=== PATIENT | female | born 1965 | race Caucasian/White ===

== ENCOUNTER → 2016-08-14 | Outpatient (CLI) | payer BC ==
--- NOTE | 2016-08-14 16:20 | XA ---
Exam Date: 08/14/16 Patient's Age: 50 HEIGHT: 65.0 in. WEIGHT: 176.0 lbs. INDICATIONS: Currently menopausal FRACTURES: TREATMENTS: Vitamin C, vitamin D ASSESSMENT: The BMD measured at Femur Neck Mean is 0.765 g/cm2 with a T-score of -2.0. This patient is considered osteopenic according to World Health Organization ( WHO) criteria. Bone density between 10% and 25% below young normal. Fracture risk is moderate. Treatment is advised. The BMD measured at Femur Troch Mean is 0.636 g/cm2 with a T-score of -1.9 is considered moderately low. Fracture risk is moderate. Treatment is advised if there are other risk factors. RESULTS: Site Region Age Classification T-Score BMD AP Spine L1-L4 48.9 Osteopenia -1.8 0.978 g/cm2 Dual Femur Neck Mean 48.9 Osteopenia -2.0 0.765 g/cm2 Dual Femur Troch Mean 48.9 N/A -1.9 0.636 g/cm2 Dual Femur Total Mean 48.9 Osteopenia -1.7 0.797 g/cm2 World Health Organization - Criteria for post-menopausal, women: Normal: T-Score at or above -1 SD Osteopenia: T-Score between -1 and -2.5 SD Osteoporosis: T-Score at or below -2.5 SD RECOMMENDATION: Pharmacologic treatment recommendations & Initiate pharmacologic treatment: - In those with hip or vertebral (clinical or asymptomatic) fractures - In those with T -scores <-2.5 at the femoral neck, total hip, or lumbar spine by DXA - In postmenopausal women and men age 50 and older with low bone mass (T-score between -1.0 and -2.5, osteopenia) at the femoral neck, total hip, or lumbar spine by DXA and a 10-year hip fracture probability >3 % or a 10-year major osteoporosis-related fracture probability >20% based on the [place]-adapted WHO absolute fracture risk model (Fracture Risk Algorithm (FRAX); www. NOF.org and www.shef.ac.uk/FRAX) FOLLOW UP: People with diagnosed cases of osteoporosis or at high risk for fracture should have regular bone mineral density tests. For patients eligible for Medicare, routine testing is allowed once every 2 years. The testing frequency can be increased to 1 year for patients who have rapidly progressing disease, those who are reviewing or discontinuing medial therapy to restore bone mass, or have additional risk factors. People with diagnosed cases of osteoporosis or osteopenia should be regularly tested for bone mineral density. For patient eligible for Medicare, routine testing is allowed once every 2 years. The testing frequency can be increased to 1 year for patients who have rapidly progressing disease, or for those who are receiving medial therapy to restore bone mass. [facility] -- LUCIANA Coello [phone] - FAX: [phone] ANEL
--- NOTE | 2016-08-14 16:23 | MY ---
EXAMINATION: Bilateral digital mammography utilizing CAD. HISTORY: Screening exam. No comparisons made available. FINDINGS: Bilateral fibroglandular densities. There is possibly a two-view asymmetry noted within the anterolateral left breast. Otherwise, no suspicious calcifications, masses or architectural dis tortions. No pathologic appearing lymph nodes, no abnormal skin thickening or nipple inversion. O ther CAD highlighted regions appear normal at this time. IMPRESSION: BI-RADS category 0 - Incomplete study. Left breast diagnostic is needed for further ev aluation. THE FALSE-NEGATIVE RATE OF MAMMOGRAM IS APPROXIMATELY 10%. MANAGEMENT OF A PALPABLE ABNORMALITY MUST BE BASED UPON CLINICAL GROUNDS. SENSITIVITY FOR DETECTION OF ABNORMALITIES IN DENSE BREASTS IS LOW. NOTE: A letter will be sent to the patient regarding findings. [facility] -- LUCIANA Coello [phone] - FAX [phone]
== END ==
LOC: MW.MAM 14:35
PROVIDERS: ATTEND Nurse Practitioner Family
DX: Z12.31 Encounter for screening mammogram for malignant neoplasm of breast (principal); M81.0 Age-related osteoporosis without current pathological fracture
CPT/HCPCS: 77080; G0202

== ENCOUNTER 2019-01-13 09:42 | Day surgery (SDC) | payer BC ==
[~2019-01-13 09:42] MED LIST: Lactated Ringers 1,000 ML IV SCH; Lidocaine 2% 5 ML SDV ONE; Propofol 200 MG/20 ML SDV ONE; Sodium Chloride 0.9% 10 ML SDV IV PRN; Sodium Chloride 0.9% 10 ML Syringe FLUSH PRN; Sodium Chloride 0.9% 2.5 ML Syringe FLUSH PRN; fentaNYL 100 MCG/2 ML SDV ONE
--- NOTE | 2019-01-13 10:31 | PCM.PREANE ---
Preanesthetic Assessment - Anesthesia/Transfusion/Family Hx Anesthesia History: Prior Anesthesia Without Reaction Family History of Anesthesia Reaction: No Transfusion History: No Prior Transfusion(s) - Review of Systems General: No Symptoms Pulmonary: No Symptoms Cardiovascular: No Symptoms Gastrointestinal: No Symptoms, Nausea Other: Reports: None - Physical Assessment NPO Status Date: 01/13/19 NPO Status Time: 05:00 Vital Signs: Last Vital Signs Temp 97.7 F 01/13/19 10:00 Pulse 76 01/13/19 10:00 Resp 16 01/13/19 10:00 BP 144/89 H 01/13/19 10:00 Pulse Ox 100 01/13/19 10:00 Height: 5 ft 4 in Weight: 80.739 kg ASA Class: 2 Mental Status: Alert & Oriented x3 Airway Class: Mallampati = 2 Dentition: Reports: Normal Dentition ROM/Head Extension: Full Lungs: Clear to Auscultation, Normal Respiratory Effort Cardiovascular: Regular Rate, Regular Rhythm - Allergies Allergies/Adverse Reactions: Allergies Allergy/AdvReac Type Severity Reaction Status Date / Time No Known Allergies Allergy Verified 01/07/19 12:16 - Blood Blood Available: Yes - Acknowledgements Anesthesia Type Planned: General Anesthesia Pt an Appropriate Candidate for the Planned Anesthesia: Yes Alternatives and Risks of Anesthesia Discussed w Pt/Guardian: Yes Pt/Guardian Understands and Agrees with Anesthesia Plan: Yes Additional Comments: PMH: gerd PLAN: tiva PreAnesthesia Questionnaire HEENT History: Reports: Other (See Below) Other HEENT History: wears glasses, hx of Toxoplasmosis- in remission Cardiovascular History: Reports: Hypertension Other Cardiovascular History: hx of hypertension in the past- started exercise and it has stayed under control Gastrointestinal History: Reports: GERD Musculoskeletal History: Reports: Fracture Other Musculoskeletal History: hx of fx ribs, right arm, left arm, right foot Neurological History: Reports: Other (See Below) Other Neuro History: hx of restless leg syndrome Endocrine/Metabolic History: Reports: Obesity/BMI 30+ - Past Surgical History HEENT Surgical History: Reports: Other (See Below) Other HEENT Surgeries/Procedures: hx of Eye muscle surgery Female Surgical History: Reports: Tubal Ligation - SUBSTANCE USE Smoking Status *Q: Former Smoker Tobacco Use Within Last Twelve Months: No Recreational Drug Use History: No - HOME MEDS Home Medications: Home Meds Pantoprazole Sodium 40 mg PO DAILY 01/07/19 [History] traZODone HCl [Trazodone HCl] 50 mg PO BEDTIME PRN 01/07/19 [History] - CURRENT (IN HOUSE) MEDS Current Meds: Current Medications Lactated Ringer's (Ringers, Lactated) 1,000 mls @ 125 mls/hr IV ASDIRECTED SURINDER Last Admin: 01/13/19 10:10 Dose: 125 mls/hr Sodium Chloride (Saline Flush) 10 ml FLUSH ASDIRECTED PRN PRN Reason: Keep Vein Open Sodium Chloride (Saline Flush) 2.5 ml FLUSH ASDIRECTED PRN PRN Reason: Keep Vein Open Sodium Chloride (Saline Flush) 10 ml FLUSH ASDIRECTED PRN PRN Reason: Keep Vein Open Sodium Chloride (Saline Flush) 2.5 ml FLUSH ASDIRECTED PRN PRN Reason: Keep Vein Open Sodium Chloride (Normal Saline) 10 ml IV ASDIRECTED PRN PRN Reason: IV Use Discontinued Medications Fentanyl (Sublimaze) Confirm Administered Dose 100 mcg .ROUTE .STK-MED ONE Stop: 01/13/19 07:54 Lidocaine (Xylocaine-Mpf 2%) Confirm Administered Dose 5 ml .ROUTE .STK-MED ONE Stop: 01/13/19 07:54 Propofol (Diprivan 20 Ml) Confirm Administered Dose 400 mg .ROUTE .STK-MED ONE Stop: 01/13/19 07:54
--- NOTE | 2019-01-13 10:56 | PCM.POSTAN ---
POST ANESTHESIA ASSESSMENT - MENTAL STATUS Mental Status: Alert, Oriented - VITAL SIGNS Vital Signs: Last Vital Signs Temp 97.7 F 01/13/19 10:00 Pulse 76 01/13/19 10:00 Resp 16 01/13/19 10:00 BP 144/89 H 01/13/19 10:00 Pulse Ox 100 01/13/19 10:00 - RESPIRATORY Respiratory Status: Respiratory Rate WNL, Airway Patent, O2 Saturation Stable - CARDIOVASCULAR CV Status: Pulse Rate WNL, Blood Pressure Stable - GASTROINTESTINAL GI Status: No Symptoms - POST OP HYDRATION Hydration Status: Adequate & Stable
--- NOTE | 2019-01-13 11:37 | PCM.OPNOTE ---
- General Post-Op/Procedure Note Date of Surgery/Procedure: 01/13/19 Operative Procedure(s): Diagnostic EGD and screening colonoscopy Findings: Gastritis with superficial ulceration Pre Op Diagnosis: Epigastric pain Post-Op Diagnosis: Gastritis, normal colonoscopy Anesthesia Technique: [facility] Primary Surgeon: Lorrie Yang Condition: Good
--- NOTE | 2019-01-13 11:57 | PCM48HPAN ---
Post Anesthesia Note - EVALUATION WITHIN 48HRS OF ANESTHETIC Vital Signs in Normal Range: Yes Patient Participated in Evaluation: Yes Respiratory Function Stable: Yes Airway Patent: Yes Cardiovascular Function Stable: Yes Hydration Status Stable: Yes Pain Control Satisfactory: Yes Nausea and Vomiting Control Satisfactory: Yes Mental Status Recovered: Yes Vital Signs: Last Vital Signs Temp 97.7 F 01/13/19 10:00 Pulse 62 01/13/19 11:42 Resp 13 01/13/19 11:42 BP 121/76 01/13/19 11:42 Pulse Ox 100 01/13/19 11:42
--- NOTE | 2019-01-13 12:19 | OR ---
SURGEON: LORRIE YANG MD DATE OF PROCEDURE: 01/13/2019 PREOPERATIVE DIAGNOSIS: Screening colonoscopy, epigastric pain. POSTOPERATIVE DIAGNOSES: 1. Gastritis. 2. Normal colonoscopy. PROCEDURE PERFORMED: Diagnostic esophagogastroduodenoscopy and screening colonoscopy. PRIMARY SURGEON: Endoscopist, Lorrie Yang MD. ANESTHESIA: MAC. INSTRUMENT USED: Olympus endoscope and colonoscope. EXTENT OF EXAM: To the second portion of duodenum, to the cecum. PREPARATION: Good. LIMITATIONS: None. INDICATION FOR EXAMINATION: The patient is a 53-year-old female who presents with chronic epigastric pain. She has never had a colonoscopy. I explained the need for diagnostic EGD and screening colonoscopy. I explained the procedures, expected perioperative course, and risks including bleeding, infection, or damage to surrounding structures including perforation. The patient verbalized understanding and wishes to proceed. PROCEDURE IN DETAIL: The patient was brought into the endoscopy suite and placed in the left lateral decubitus position. A time-out was completed verifying the patient's name, age, date of , allergies, and procedure to be performed. A bite block was placed in the patient's mouth and monitored anesthesia care was induced. Continuous oxygen was provided via nasal cannula throughout the procedure. After adequate sedation was achieved, a well lubricated endoscope was placed in the patient's mouth and advanced under direct visualization to the second portion of duodenum. This appeared normal and a photograph was taken. The scope was then straightened out and fully withdrawn while examining the color, texture, anatomy, and integrity of the mucosa of the upper GI tract. The duodenum appeared normal. The scope was brought into the stomach and a photograph was taken of the pylorus as well as the GE junction. The GE junction appeared anatomically normal. The antrum appeared inflamed with superficial ulcerations. Biopsies of the antrum were taken and sent to pathology for H. pylori testing and histologic review. Biopsies were also taken of the body and fundus. The scope was then brought into the distal esophagus and a photograph was taken of the Z-line. This appeared normal. A biopsy was taken of the esophageal mucosa and sent to pathology. The remainder of the esophagus was free of pathology. The scope was removed and this portion of procedure terminated. A digital rectal exam was performed. This exam revealed mild hemorrhoidal disease. A well lubricated colonoscope was inserted into the rectum and advanced under direct visualization to the level of the cecum. The cecum was identified by both visual and anatomic landmarks. A photograph was taken of the cecal cap as well as with the scope retroflexed within the cecum. The scope was then straightened out and fully withdrawn while examining the color, texture, anatomy, and integrity of the mucosa from the cecum to the anal canal. The findings were consistent with normal colonic mucosa. The scope was then brought into the rectum and retroflexed to allow visualization of the anal canal opening. This appeared normal and a photograph was taken. The scope was then straightened out and fully withdrawn. The cecum to anus time was 7 minutes. The patient tolerated the procedure well and was transferred to the PACU in stable condition. ENDOSCOPIC DIAGNOSIS: Gastritis. RECOMMENDATIONS: Continue to take pantoprazole for now. We will start the patient on Carafate and see her back in clinic in 2 weeks. KRISHNA SAENZ /[id number]
== END 2019-01-13 12:03 | disposition home or self-care (01) ==
LOC: MW.SDS 09:42
PROVIDERS: ATTEND Surgery
DX: Z12.11 Encounter for screening for malignant neoplasm of colon (principal); K64.9 Unspecified hemorrhoids; K21.0 Gastro-esophageal reflux disease with esophagitis; K29.50 Unspecified chronic gastritis without bleeding; K31.89 Other diseases of stomach and duodenum; I10 Essential (primary) hypertension; F17.290 Nicotine dependence, other tobacco product, uncomplicated; G47.00 Insomnia, unspecified; Z79.899 Other long term (current) drug therapy
CPT/HCPCS: 43239; 45378; J2001; J2704; J3010; J7120; 00813